=== PATIENT | female | born 1955 | race Hispanic/Latino ===

== ENCOUNTER 2016-08-31 13:35 | Emergency (ER) | payer BC, SELFPAY ==
[2016-08-31] MEDS ORDERED: HYDROcodone/Acetaminophen 5/325 mg Tablet ONE (13:48)
--- NOTE | 2016-08-31 20:28 | RAD ---
RIGHT WRIST THREE VIEWS: Date: 08-31-16 FINDINGS: No fracture was appreciated at this time. The carpal relations and carpals themselves all appeared n ormal. IMPRESSION: No acute finding. POS: HOME
--- NOTE | 2016-08-31 20:41 | RAD ---
RIGHT HUMERUS TWO VIEWS: Date: 08-31-16 FINDINGS: No overt fracture was seen. There is a little irregularity along the upper outer articular surface o f the humeral head but this is nonspecific. There is narrowing and arthritic change in the right AC joint. The visible adjacent right ribs appeared normal. IMPRESSION: No acute bony findings. POS: HOME
--- NOTE | 2016-08-31 20:42 | RAD ---
CHEST TWO VIEWS: Date: 08-31-16 Comparison: 07-08-11 FINDINGS: The heart and mediastinum are normal in size. There is no mediastinal shift or widening. The lungs a re fully inflated and clear. No fractures were appreciated. Degenerative changes are seen in the tho racic spine. IMPRESSION: No acute finding. POS: HOME
== END 2016-08-31 14:55 | disposition home or self-care (01) ==
LOC: BURERS 13:35
DX: S43.401A Unspecified sprain of right shoulder joint, initial encounter (principal); S63.501A Unspecified sprain of right wrist, initial encounter; E11.9 Type 2 diabetes mellitus without complications; E78.5 Hyperlipidemia, unspecified; E78.00 Pure hypercholesterolemia, unspecified; I10 Essential (primary) hypertension; W17.89XA Other fall from one level to another, initial encounter
CPT/HCPCS: 71020